=== PATIENT | female | born 1995 | race Caucasian/White ===

== ENCOUNTER 2019-12-25 17:19 | Observation (INO) | payer OTHER, SELFPAY ==
[2019-12-25 17:56] VITALS: BP 136/72; PULSE 102
[2019-12-25 18:07] VITALS: BMI 26.6
[2019-12-25] MEDS: ACETAMINOPHEN 500 MG TABLET 1000 MG PO (18:17)
[2019-12-25 18:28] VITALS: BP 140/71; PULSE 104
[2019-12-25 18:30] VITALS: RESP 20; TEMP 37.6
--- NOTE | 2019-12-25 18:53 | OBADM ---
This patient, Patricia Madden, admitted to the OB room OB Post 113 for observation. Patient/family oriented to hospital policies and general routines including ID bracelet, bed and alarms, visiting hours, pain management, procedures, bathroom and other care routines, personal items, smoking policy, room service/diet, and visiting hours. Patient/Family are encouraged to report perceived risks to care and to ask questions if they do not understand what they are told or what they should do.
--- NOTE | 2019-12-29 11:42 | PM.OBTRLD ---
OB - Triage/Final Diagnosis Visit Information Reason for evaluation: threatened labor
== END 2019-12-25 19:54 | disposition home or self-care (01) ==
PROVIDERS: Admitting Provider Obstetrics & Gynecology; Visit Provider Obstetrics & Gynecology
DX: O47.02 False labor before 37 completed weeks of gestation, second trimester (principal); Z3A.27 27 weeks gestation of pregnancy
CPT/HCPCS: A9270; G0378; G0379

== ENCOUNTER 2020-03-08 16:59 | Outpatient (RCR) | payer OTHER, SELFPAY ==
--- NOTE | ~2020-03-08 | US_ITS ---
EXAMINATION: US OB limited w BPP EXAM DATE: 03/08/2020 18:44 INDICATION: Verbal decelerations. Nonreactive stress test. Third trimester. TECHNIQUE: Pelvic obstetrical transabdominal sonogram was performed by a technologist. There are mu ltiple grayscale and Doppler images available for interpretation. FINDINGS: There is a single fetus identified in vertex presentation with a heart rate of 139 beats pe r minute. The placenta is located in the posterior position. There is no sonographic evidence of ret roplacental hemorrhage identified. The amniotic fluid index is 14.7 centimeters, which is normal. BIOPHYSICAL PROFILE (performed by the technologist) breathing (30 sec sustained breathing in 30 minutes): 2 out of 2 movement (3 gross body movements in 30 minutes): 2 out of 2 tone (one episode of ymbpmcg-lahmhcywe-qswjxka limb movement): 2 out of 2 Amniotic fluid pocket (2 cm): 2 out of 2 Total score: 8 out of 8 IMPRESSION: 1. Single fetus with heart rate of 139 bpm. 2. Normal biophysical profile score of 8 out of 8. 3. Normal UMA 14.7 cm. Reviewed, dictated and finalized at location A.
--- NOTE | 2020-03-08 17:40 | PC.NURSE ---
Called Dr. Arvizu with pt status. Informed of BPs, questionable variable decelerations and decreased movement. Occasional contractions noted. Orders received for ultrasound and labs.
[2020-03-08 18:05] LABS: Basophils Percent Auto 0.2 % (0.2-1.2); Eosinophils Absolute Auto 0.1 K/mm3 (0-0.3); Eosinophils Percent Auto 0.9 % (0-4.4); Hematocrit 33.7 % (37.0-47.0); Hemoglobin 11.1 g/dL (12.0-15.0); Immature Granulocyte Absolute 0.23 K/mm3 (0.00-0.031); Immature Granulocyte Percent A 2.1 % (0-0.5); Lymphocytes Absolute Auto 1.95 K/mm3 (0.9-3.2); Lymphocytes Percent Auto 18.2 % (18.3-44.2); Mean Corpuscular HGB Conc 32.9 g/dl (32-36); Mean Corpuscular Hemoglobin 29.7 pg (26-34); Mean Corpuscular Volume 90.1 fl (80-100); Mean Platelet Volume 12.3 fl (7.4-10.4); Monocytes Absolute Auto 0.8 K/mm3 (0.1-0.6); Monocytes Percent Auto 7.6 % (2.6-8.5); Neutrophils Absolute Auto 7.6 K/mm3 (1.3-6.7); Platelet Count Result 182 k/mm3 (150-375); Red Blood Count 3.74 M/mm3 (4.2-5.4); Red Cell Distribution Width 12.8 % (11.5-14.5); White Blood Count 10.7 K/mm3 (4.5-10.0)
[2020-03-08 18:16] LABS: Alanine Aminotransferase 17 U/L (4-35); Albumin Level 3.5 g/dL (3.5-5.1); Alkaline Phosphatase 135 U/L (38-126); Aspartate Amino Transferase 24 U/L (14-36); Bilirubin,Total 0.2 mg/dL (0.2-1.3); Blood Urea Nitrogen 6 mg/dL (7-17); Calcium 9.6 mg/dL (8.4-10.2); Carbon Dioxide 21 mmol/L (22-30); Chloride 105 mmol/L (98-107); Estimated Glomerular Filt Rate > 60; Glucose 101 mg/dL (65-105); Potassium 3.5 mmol/L (3.4-5.0); Sodium 134 mmol/L (137-145); Uric Acid 3.9 mg/dL (2.5-7.5)
[2020-03-08 18:17] LABS: Creatinine Urine 47.8 mg/dL; Total Protein Urine Random 16 mg/dL
--- NOTE | 2020-03-08 18:54 | PC.NURSE ---
Updated Dr. Arvizu with patient lab results and ultrasound report. BPP 06/18. UMA WNL. Protein/Creatinine ratio 0.33. Patient reports feeling increased movement when placing hands on abdomen. FHT reactive. Occasional contractions noted. Order for discharge received. 24 hour urine collection started prior to discharge. Patient to follow-up with Dr. Koch tomorrow at regular scheduled appointment on 03/09/2020.
[2020-03-08 18:57] VITALS: BP 134/85; PULSE 102
--- NOTE | 2020-03-08 19:00 | PC.NURSE ---
24 Hour urine collection instructions reviewed with patient. 24 hour urine started.
[2020-03-08 19:26] VITALS: BMI 30.2
[2020-03-09 18:47] VITALS: BMI 30.2
== END 2020-03-14 07:52 | disposition home or self-care (01) ==
LOC: ANHOBOP 16:59
PROVIDERS: Obstetrics & Gynecology; Visit Provider Obstetrics & Gynecology
DX: O13.3 Gestational [pregnancy-induced] hypertension without significant proteinuria, third trimester (principal); O36.8130 Decreased fetal movements, third trimester, not applicable or unspecified; Z3A.37 37 weeks gestation of pregnancy
CPT/HCPCS: 36415; 59025; 76815; 76819; 80053; 82570; 84156; 84550; 85025

== ENCOUNTER 2020-03-09 18:42 | Outpatient (RCR) | payer OTHER, SELFPAY ==
[2020-03-09 19:01] VITALS: BMI 30.2
[2020-03-09 22:07] LABS: Collection Time Urine 24 HOURS
[2020-03-09 22:11] LABS: Patient Weight 205 Lbs; Total Volume 24 Hour Urine 1600 ml
[2020-03-09 22:15] LABS: Creatinine Clearance Urine 226.4 ml/min (75-125); Creatinine Urine 73.5 mg/dL; Total Protein Urine 24 Hr 256 MG/DAY (28-141); Total Protein Urine Random 16 mg/dL
== END 2020-03-14 07:51 | disposition home or self-care (01) ==
LOC: ANHOBOP 18:42
PROVIDERS: Visit Provider Obstetrics & Gynecology
DX: O13.3 Gestational [pregnancy-induced] hypertension without significant proteinuria, third trimester (principal); Z3A.38 38 weeks gestation of pregnancy
CPT/HCPCS: 81050; 82575; 84156

== ENCOUNTER 2020-03-13 04:11 | Inpatient (IN) | payer BC, OTHER, SELFPAY ==
[2020-03-13] VITALS (121 sets, daily range): BP systolic 112–153; BP diastolic 58–115; PULSE 51–284; RESP 17–18; TEMP 36.7–37.4; O2SAT 79–100; BMI 30.9
[2020-03-13] MEDS: AMPICILLIN 2 GM/NS 100 ML 2 GM/100 ML BAG IVPB (05:11)
[2020-03-13] MEDS: LACTATED RINGERS 1,000 ML 125 ML IV CONT ×3 (05:11→08:51)
[2020-03-13 05:17] LABS: Basophils Percent Auto 0.2 % (0.2-1.2); Eosinophils Absolute Auto 0.1 K/mm3 (0-0.3); Eosinophils Percent Auto 1.4 % (0-4.4); Immature Granulocyte Absolute 0.21 K/mm3 (0.00-0.031); Immature Granulocyte Percent A 2.2 % (0-0.5); Lymphocytes Absolute Auto 2.38 K/mm3 (0.9-3.2); Lymphocytes Percent Auto 25.4 % (18.3-44.2); Mean Corpuscular HGB Conc 33.3 g/dl (32-36); Mean Corpuscular Hemoglobin 30.1 pg (26-34); Mean Corpuscular Volume 90.4 fl (80-100); Mean Platelet Volume 12.4 fl (7.4-10.4); Monocytes Absolute Auto 0.8 K/mm3 (0.1-0.6); Monocytes Percent Auto 8.8 % (2.6-8.5); Neutrophils Absolute Auto 5.8 K/mm3 (1.3-6.7); Platelet Count Result 176 k/mm3 (150-375); Red Blood Count 3.65 M/mm3 (4.2-5.4); White Blood Count 9.4 K/mm3 (4.5-10.0)
--- NOTE | 2020-03-13 05:19 | LDADM ---
This patient, Patricia Madden, was admitted to Labor/Delivery/Recovery 107 on 03/13/20 at 04:11. Plans for labor, pain management and were discussed with patient. Patient/family oriented to hospital policies and general routines including ID bracelet, bed and alarms, visiting hours, pain management, procedures, bathroom and other care routines, personal items, smoking policy, room service/diet and guest tray routines, infant security routines, and visiting hours. Patient/Family are encouraged to report perceived risks to care and to ask questions if they do not understand what they are told or what they should do. See OBIX for further documentation.
[2020-03-13 05:52] LABS: Alanine Aminotransferase 15 U/L (4-35); Albumin Level 3.4 g/dL (3.5-5.1); Alkaline Phosphatase 135 U/L (38-126); Aspartate Amino Transferase 24 U/L (14-36); Bilirubin,Total 0.2 mg/dL (0.2-1.3); Blood Urea Nitrogen 8 mg/dL (7-17); Calcium 9.2 mg/dL (8.4-10.2); Carbon Dioxide 18 mmol/L (22-30); Chloride 109 mmol/L (98-107); Estimated CRCL calculation 271 ml/min; Estimated Glomerular Filt Rate > 60; Glucose 86 mg/dL (65-105); Potassium 3.5 mmol/L (3.4-5.0); Sodium 134 mmol/L (137-145); Uric Acid 4.3 mg/dL (2.5-7.5)
--- NOTE | 2020-03-13 05:55 | WPDANESEPP ---
Anes - Eval Pre Procedure Procedure: labor epidural Date/Time: 03/13/20 05:55 Surgeon: sea Pre Op Diagnosis: Leaking/Vag bleeding Patient Data Age: 24 Gender: F Height: 1.75 m Weight: 95 kg Last Vital Signs Temp 37.4 C 03/13/20 05:10 Pulse 90 03/13/20 05:46 BP 150/94 H 03/13/20 05:46 Allergies Allergy/AdvReac Type Severity Reaction Status Date / Time No Known Allergies Allergy Verified 11/28/19 21:45 Home Medications Medication Instructions Recorded Confirmed Type Gummies 2 tablet PO DAILY 12/25/19 12/25/19 History sertraline 50 mg PO HS 12/25/19 12/25/19 History Laboratory Tests 03/13/20 03/13/20 03/13/20 04:56 04:56 05:33 WBC 9.4 K/mm3 K/mm3 (4.5-10.0) RBC 3.65 M/mm3 L M/mm3 (4.2-5.4) Hgb 11.0 g/dL L g/dL (12.0-15.0) Hct 33.0 % L % (37.0-47.0) MCV 90.4 fl fl (80-100) MCH 30.1 pg pg (26-34) MCHC 33.3 g/dl g/dl (32-36) RDW 13.0 % % (11.5-14.5) Plt Count 176 k/mm3 k/mm3 (150-375) MPV 12.4 fl H fl (7.4-10.4) Immature Gran % (Auto) 2.2 % H % (0-0.5) Neut % (Auto) 62.0 % % (45.5-73.1) Lymph % (Auto) 25.4 % % (18.3-44.2) [place] % (Auto) 8.8 % H % (2.6-8.5) Eos % (Auto) 1.4 % % (0-4.4) Baso % (Auto) 0.2 % % (0.2-1.2) Lymph # (Auto) 2.38 K/mm3 K/mm3 (0.9-3.2) [place] # (Auto) 0.8 K/mm3 H K/mm3 (0.1-0.6) Eos # (Auto) 0.1 K/mm3 K/mm3 (0-0.3) Baso # (Auto) 0.0 K/mm3 K/mm3 (0.0-0.1) Abs Immat Gran (auto) 0.21 K/mm3 H K/mm3 (0.00-0.031) Absolute Neuts (auto) 5.8 K/mm3 K/mm3 (1.3-6.7) Absolute Nucleated RBC 0.0 K/mm3 K/mm3 (0.0-0.012) Nucleated RBC % 0.0 % % (0.0-0.2) Sodium 134 mmol/L L mmol/L (137-145) Potassium 3.5 mmol/L mmol/L (3.4-5.0) Chloride 109 mmol/L H mmol/L (98-107) Carbon Dioxide 18 mmol/L L mmol/L (22-30) BUN 8 mg/dL mg/dL (7-17) Creatinine 0.30 mg/dL L mg/dL (0.7-1.0) Estim Creat Clear Calc 271 ml/min ml/min Estimated GFR > 60 (59 - ) Glucose 86 mg/dL mg/dL (65-105) Uric Acid 4.3 mg/dL mg/dL (2.5-7.5) Calcium 9.2 mg/dL mg/dL (8.4-10.2) Total Bilirubin 0.2 mg/dL mg/dL (0.2-1.3) AST 24 U/L U/L (14-36) ALT 15 U/L U/L (4-35) Alkaline Phosphatase 135 U/L H U/L (38-126) Total Protein 6.0 g/dL L g/dL (6.3-8.2) Albumin 3.4 g/dL L g/dL (3.5-5.1) RPR Pending Patient hx anesthesia problems: none Family hx anesthesia problems: none [facility] Past Medical History Medical History (Updated 11/29/19 @ 00:00 by Sheldon Gregory) Anxiety Surgical History Surgical History (Updated 11/28/19 @ 21:47 by Laura Valle) History of appendectomy Family History Family History (Updated 02/27/20 @ 13:33 by Sam Jansen RN) Mother Hypertension Rheumatoid arthritis Social History Social History (Updated 11/28/19 @ 21:47 by Laura Valle) Smoking status: Never smoker Substance use: never Gender identity (if verbalized by the patient): Female Spiritual care concerns: No Exam Day of Procedure 03/13/20 05:55
[2020-03-13] MEDS: OXYTOCIN 30 UNITS/NS 500 ML 30 UNITS/500 ML BAG 6 UNITS IV CONT (06:32)
[2020-03-13] MEDS: AMPICILLIN 1 GM/NS 50 ML 1 GM/50 ML BAG IVPB (08:51)
--- NOTE | 2020-03-13 09:30 | WPDOBADMIT ---
Obstetrics - Admit Note Admission Note: record reviewed. No pertinent additions to the history and/or any subsequent changes in the physical findings that are not consistent with the expected course of the were found. Additions to the history and/or subsequent changes in the physical findings follow. Here with prolonged ROM. Patient did not come in when SROM until early this am. Pitocin and antibiotics started immediately. Now 6/80/-1. AROM forebag with clear fluid.FHTs reactive
--- NOTE | 2020-03-13 12:07 | PM.OBPRVD ---
OB - Delivery Note Procedure events: Induced HTN and Prolonged Rupture of Membrane (03/12/20 at 0700) Intrapartal events: None Induction method: per pitocin protocol Delivery monitor: external FHT and external uterine Route of delivery: Laceration description: Perineal - 1st Degree Delivery repair: vicryl (3-0 ) Specimen: Yes (placenta) Estimated blood loss (mL): 100 Anesthesia type: Epidural Disposition: floor Baby Date of : 03/13/20 Weeks of gestation at delivery: 38 gender: Male Weight (pounds): 7 Weight (ounces): 3 presentation: vertex Placenta delivery description: Spontaneous cord vessel description: Around Body x1 score one minute: 9 score five minutes: 9
--- NOTE | 2020-03-13 12:08 | PM.OBDSVD ---
DS: Diagnosis Discharge Diagnosis (1) 38 weeks gestation of : Code(s): Z3A.38 - 38 weeks gestation of Status: Acute (2) induced hypertension: Code(s): O13.9 - Gestational [-induced] hypertension without significant proteinuria, unspecified trimester Status: Acute (3) (normal spontaneous vaginal delivery): Code(s): O80 - Encounter for full-term uncomplicated delivery Status: Acute OB - DS: Summary OB Procedures : NST and Ultrasound OB Procedures Intrapartum: Spontaneous Vag Delivery OB Procedures: : None Peripartum Data Delivery Method: Natural Vaginal Laceration description: Perineal - 1st Degree complications: none Status at Discharge Functional status at discharge: independent ambulation Overall status at discharge: patient is progressing back to baseline Time Spent with Patient Time attestation: Total time spent providing and/or coordinating discharge services: DS: Data Data Completed and Pending Labs on day of discharge: Labs from last 24 hours 03/13/20 03/13/20 03/13/20 05:33 04:56 04:56 WBC RBC Hgb Hct MCV MCH MCHC RDW Plt Count MPV Immature Gran % (Auto) Neut % (Auto) Lymph % (Auto) [place] % (Auto) Eos % (Auto) Baso % (Auto) Lymph # (Auto) [place] # (Auto) Eos # (Auto) Baso # (Auto) Abs Immat Gran (auto) Absolute Neuts (auto) Absolute Nucleated RBC Nucleated RBC % Sodium 134 L Potassium 3.5 Chloride 109 H Carbon Dioxide 18 L BUN 8 Creatinine 0.30 L Estim Creat Clear Calc 271 Estimated GFR > 60 Glucose 86 Uric Acid 4.3 Calcium 9.2 Total Bilirubin 0.2 AST 24 ALT 15 Alkaline Phosphatase 135 H Total Protein 6.0 L Albumin 3.4 L RPR Pending Blood Type O Positive Antibody Screen Negative 03/13/20 04:56 WBC 9.4 RBC 3.65 L Hgb 11.0 L Hct 33.0 L MCV 90.4 MCH 30.1 MCHC 33.3 RDW 13.0 Plt Count 176 MPV 12.4 H Immature Gran % (Auto) 2.2 H Neut % (Auto) 62.0 Lymph % (Auto) 25.4 [place] % (Auto) 8.8 H Eos % (Auto) 1.4 Baso % (Auto) 0.2 Lymph # (Auto) 2.38 [place] # (Auto) 0.8 H Eos # (Auto) 0.1 Baso # (Auto) 0.0 Abs Immat Gran (auto) 0.21 H Absolute Neuts (auto) 5.8 Absolute Nucleated RBC 0.0 Nucleated RBC % 0.0 Sodium Potassium Chloride Carbon Dioxide BUN Creatinine Estim Creat Clear Calc Estimated GFR Glucose Uric Acid Calcium Total Bilirubin AST ALT Alkaline Phosphatase Total Protein Albumin RPR Blood Type Antibody Screen Discharge Plan Discharge Attending physician on discharge: Lachelle Adame Discharging Clinician: Lachelle Adame Anticipated Discharge Date/Time: 03/15/20 07:09 Patient Disposition: Home, Self-Care Activity: pelvic rest Diet: regular Discharge Instructions: Education: Mom and Baby Guide Given to: Mother Follow-Up: Call your delivering provider's office for an appointment to be seen in: 1 Week for blood pressure check and for a 6 week visit Mom and baby should come to the [facility] for the follow-up appointment. Appointment Date/Time: March 16, 2020 at 8:00 am What to expect at your follow-up visit: Blood Pressure Check Physical Assessment Call [phone] if you are unable to keep your appointment time. BREAST CARE: 1. Wear a snug supportive bra. 2. For engorgement discomfort: Bottle Feeding: A. May apply ice packs 3 PERINEAL CARE: 1. Until bleeding stops, use your adams bottle after urinating 2. Change your pad frequently throughout the day 3. You may take sitz baths several times a day (fill your bathtub with warm water and soak for 20 minutes.) Do NOT bathe in the water 4. No tub baths until seen by your physician - You may shower ACTIVITY: 1. Rest as m
[2020-03-13] MEDS: OXYTOCIN 30 UNITS/NS 500 ML 30 UNITS/500 ML BAG 125 UNITS IV CONT (12:31)
--- NOTE | 2020-03-13 14:45 | OBPPTRN ---
Patient transferred to post room # 291 via wheelchair. Support person present. Oriented to unit, room, information board, rooming in, admission packet and security measures. Patient verbalizes understanding.
[2020-03-13] MEDS: WITCH HAZEL 40 PADS 1 PAD TOPICAL (14:56)
[2020-03-13] MEDS: BENZOCAINE 20% AER SPR (*SP) 56 GM CAN 1 SPRAY TOPICAL (14:56)
[2020-03-13] MEDS: IBUPROFEN 600 MG TABLET PO (15:12)
[2020-03-13] MEDS: ACETAMINOPHEN 325 MG TABLET 650 MG PO ×2 (16:54→21:58)
--- NOTE | 2020-03-13 20:11 | PC.NURSE ---
Pt states that her lower back was hurting so this RN took pt a heating pad.
[2020-03-13] MEDS: SERTRALINE HCL 50 MG TABLET PO (22:23)
[2020-03-14 05:33] LABS: Hematocrit 30.2 % (37.0-47.0)
[2020-03-14 07:06] LABS: Rapid Plasma Reagin Non-Reactive (NonReactive)
[2020-03-14] MEDS: IBUPROFEN 600 MG TABLET PO (07:14)
[2020-03-14] MEDS: MULTIVIT/MIN/PREN/FOL AC/IRON TABLET 1 TAB PO (07:14)
[2020-03-14] MEDS: DOCUSATE SODIUM 100 MG CAPSULE PO ×2 (07:14→16:20)
[2020-03-14 08:58] VITALS: BP 141/85; PULSE 84; RESP 14; TEMP 37.1; O2SAT 99
[2020-03-14] MEDS: ACETAMINOPHEN 325 MG TABLET 650 MG PO ×3 (09:06→23:04)
--- NOTE | 2020-03-14 10:02 | WPDANLDPN2 ---
Anes-Prog Note L&D Date/Time: 03/14/20 10:02 Comfortable throughout: labor and delivery Neuraxial method: epidural Epidural/Spinal procedure site: clean & non-tender Neuro status: Neuro function grossly intact. Cardiovascular status: normal Respiratory status: normal Airway patency: baseline Mental status: baseline Post-Op hydration status: normal Vital Signs: Last Vital Signs Temp 37.1 C 03/14/20 08:58 Pulse 84 03/14/20 08:58 Resp 14 03/14/20 08:58 BP 141/85 H 03/14/20 08:58 Pulse Ox 99 03/14/20 08:58 I/O: Intake & Output 03/13/20 03/14/20 03/14/20 23:59 07:59 15:59 Intake Total 240 Balance 240 Post-procedural complaints: none Patient feedback: Patient satisfied with anesthetic care.
--- NOTE | 2020-03-14 13:24 | PM.OBPNVD ---
OB - PN: Subj Subjective Date/time seen: 03/14/20 13:24 Patient comments: no complaints, pain well controlled and tolerating diet [place] baby status: doing well Narrative: No PIH sx OB - PN: Obj Data Labs CBC & Chem 7: 03/14/20 05:25 03/13/20 05:33 Labs: Laboratory Results - last 24 hr 03/13/20 03/14/20 04:56 05:25 Hgb 10.0 L Hct 30.2 L RPR Non-reactive OB - PN A/P Assessment and Plan (1) induced hypertension: Code(s): O13.9 - Gestational [-induced] hypertension without significant proteinuria, unspecified trimester Status: Acute Assessment and Plan: BP remain elevated. No sx. Obs. Plan day: 1 Plan: routine care Time Spent With Patient Time: Total time spent is greater than 50% in coordination of care (as documented) at patient's floor/unit and/or counseling patient: Exam : Bimanual exam- vagina & uterus: other (Uterus firm, nt @U)
[2020-03-14 19:30] VITALS: BP 128/85; PULSE 90; RESP 16; TEMP 37.2; O2SAT 100
[2020-03-14] MEDS: SERTRALINE HCL 50 MG TABLET PO (23:04)
[2020-03-15] MEDS: BENZOCAINE 20% AER SPR (*SP) 56 GM CAN 1 SPRAY TOPICAL (07:24)
[2020-03-15] MEDS: DOCUSATE SODIUM 100 MG CAPSULE PO (07:24)
[2020-03-15] MEDS: ACETAMINOPHEN 325 MG TABLET 650 MG PO (07:24)
[2020-03-15] MEDS: WITCH HAZEL 40 PADS 1 PAD TOPICAL (07:24)
[2020-03-15] MEDS: MULTIVIT/MIN/PREN/FOL AC/IRON TABLET 1 TAB PO (07:24)
--- NOTE | 2020-03-15 07:54 | P.PNOB_ITS ---
OB - PN: Subj Subjective Date/time seen: 03/15/20 07:54 Patient comments: no complaints and pain well controlled baby status: doing well Narrative: No PIH sx OB - PN: Obj Data Labs CBC & Chem 7: 03/14/20 05:25 03/13/20 05:33 OB - PN A/P Assessment and Plan (1) induced hypertension: Code(s): O13.9 - Gestational [-induced] hypertension without significant prot einuria, unspecified trimester Status: Acute Assessment and Plan: BP check at home. Call for >160/100 Plan day: 2 Plan: routine care and discharge home Comments: f/u 1 wk Time Spent With Patient Time: Total time spent is greater than 50% in coordination of care (as documented) at patient's floor/unit and/or counseling patient: Exam : Bimanual exam- vagina & uterus: other (Uterus firm, nt @U)
[2020-03-15 08:22] VITALS: BP 116/65; PULSE 71; RESP 14; TEMP 36.6
[2020-03-16 08:56] VITALS: BP 139/77; PULSE 92; RESP 20; TEMP 37.1
== END 2020-03-15 11:08 | disposition home or self-care (01) | DRG 560 ==
LOC: ANHLDR 12:10 → ANHOB2 03-14 11:55 → ANHLDR 03-16 12:57 → ANHOB2 03-16 12:57
PROVIDERS: Admitting Provider Obstetrics & Gynecology Gynecology; Visit Provider Obstetrics & Gynecology Gynecology
DX: O42.92 Full-term premature rupture of membranes, unspecified as to length of time between rupture and onset of labor (principal); Z37.0 Single live birth; Z3A.38 38 weeks gestation of pregnancy; O13.4 Gestational [pregnancy-induced] hypertension without significant proteinuria, complicating childbirth; O99.824 Streptococcus B carrier state complicating childbirth; O69.82X0 Labor and delivery complicated by other cord entanglement, without compression, not applicable or unspecified; O70.0 First degree perineal laceration during delivery; O99.344 Other mental disorders complicating childbirth; F41.8 Other specified anxiety disorders
CPT/HCPCS: 36415; 80053; 84550; 85014; 85018; 85025; 86592; 86850; 86900; 86901; 88307; A9270; J0290; J2590; J2795; J7120

== ENCOUNTER 2020-03-16 08:39 | Outpatient (CLI) | payer OTHER, SELFPAY ==
[2020-03-16] MEDS: medroxyPROGESTERone ACETATE IM 150 MG/ML SYR IM (09:13)
== END 2020-03-16 08:40 | disposition home or self-care (01) ==
PROVIDERS: Visit Provider Obstetrics & Gynecology Gynecology
DX: Z30.42 Encounter for surveillance of injectable contraceptive (principal)
CPT/HCPCS: 96372; J1050

== ENCOUNTER 2021-07-21 14:25 | Outpatient (CLI) | payer OTHER, SELFPAY ==
--- NOTE | ~2021-07-21 | US_ITS ---
EXAMINATION: US OB /maternal detail DATE: 07/21/2021 15:20 INDICATION: survey TECHNIQUE: Multiple obstetric sonographic images performed. FINDINGS: No prior studies for comparison. There is a single living fetus in variable presentation. The placenta is fundal/posterior without pl acenta previa. Placental margin to the cervix is 7.9 cm. Amniotic fluid volume is subjectively normal . cardiac activity and movement is noted with a heart rate of 148 beats per minute. There are bilateral choroid plexus cysts. The spine and ventricular outflow tracts are not well visua lized. The following anatomy was identified as normal: 3 vessel cord cord insertion kidneys urinary bladder stomach spine diaphragm cisterna magna cerebellum The following biometric data were obtained: BPD: 46mm corresponds to gestational age 19 weeks 6 days. Head circumference: 166 mm corresponds to gestational age 19 weeks 2 days. Abdominal circumference: 141 mm corresponds to gestational age 19 weeks 3 days. Femur length: 29 mm corresponds to gestational age 19 weeks 0 days. Head circumference to abdominal circumference ratio: 1.17 (normal range for expected gestational age is 1.08-1.26). Estimated weight: 282 grams +/- 42 grams using Hadlock method. IMPRESSION: 1: Single living intrauterine with an estimated gestational age of 19weeks 3days by current ultrasound measurements, with an EDC of 12/12/2021 in variable presentation. 2. survey limited for evaluation of the spine and ventricular outflow tracts. Bilateral choroi d plexus cyst are present. Remainder of the survey is within normal limits. Reviewed, dictated and finalized at location A. IMPRESSION: 1: Single living intrauterine with an estimated gestational age of 19 weeks 3days by current ultrasound measurements, with an EDC of 12/12/2021 in va riable presentation. 2. survey limited for evaluation of the spine and ventricular outflow tr acts. Bilateral choroid plexus cyst are present. Remainder of the survey is within normal limits.
== END 2021-07-21 14:26 | disposition home or self-care (01) ==
LOC: ANHIMG 14:32
PROVIDERS: Visit Provider Obstetrics & Gynecology Gynecology
DX: Z36.89 Encounter for other specified antenatal screening (principal); Z3A.19 19 weeks gestation of pregnancy
CPT/HCPCS: 76805

== ENCOUNTER 2021-08-30 16:48 | Emergency (ER) | payer OTHER, SELFPAY ==
[2021-08-30 17:09] VITALS: BP 117/62; PULSE 107; RESP 18; TEMP 36.3; O2SAT 99
--- NOTE | 2021-08-30 17:13 | ECG_ITS ---
Measurements Intervals [place] Rate: 92 P: 44 [place]: 127 QRS: 11 QRSD: 98 T: 29 QT: 361 QTc: 448 Interpretive Statements SINUS RHYTHM BASELINE ARTIFACT- I, II, III, AVR, AVL, AVF NORMAL ECG Electronically Signed On 08-30-2021 19:57:04 CDT by Thuan Johnson D.O.
[2021-08-30 17:37] LABS: Basophils Percent Auto 0.3 % (0.2-1.2); Eosinophils Absolute Auto 0.2 K/mm3 (0-0.3); Eosinophils Percent Auto 1.6 % (0-4.4); Hematocrit 36.6 % (37.0-47.0); Hemoglobin 12.4 g/dL (12.0-15.0); Immature Granulocyte Absolute 0.24 K/mm3 (0.00-0.031); Immature Granulocyte Percent A 2.6 % (0-0.5); Lymphocytes Absolute Auto 1.73 K/mm3 (0.9-3.2); Lymphocytes Percent Auto 18.8 % (18.3-44.2); Mean Corpuscular HGB Conc 33.9 g/dl (32-36); Mean Corpuscular Volume 94.6 fl (80-100); Mean Platelet Volume 10.9 fl (7.4-10.4); Monocytes Absolute Auto 0.9 K/mm3 (0.1-0.6); Monocytes Percent Auto 9.3 % (2.6-8.5); Neutrophils Absolute Auto 6.2 K/mm3 (1.3-6.7); Neutrophils Percent Auto 67.4 % (45.5-73.1); Platelet Count Result 187 k/mm3 (150-375); Red Blood Count 3.87 M/mm3 (4.2-5.4); White Blood Count 9.2 K/mm3 (4.5-10.0)
[2021-08-30 17:46] LABS: Anion Gap 10 mmol/L (8-16); Blood Urea Nitrogen 5 mg/dL (7-17); Carbon Dioxide 20 mmol/L (22-30); Chloride 107 mmol/L (98-107); Estimated CRCL calculation 249 ml/min; Estimated Glomerular Filt Rate > 60; Glucose 86 mg/dL (65-110); Potassium 3.7 mmol/L (3.4-5.0); Prothrombin Time 13.2 Seconds (11.1-14.7); Sodium 137 mmol/L (137-145)
[2021-08-30 17:47] LABS: Partial Thromboplastin Time 29.2 SECONDS (22.3-36.8)
[2021-08-30 17:58] LABS: Troponin I < 0.012 ng/mL (0.000-0.034)
--- NOTE | 2021-08-30 18:38 | ED.URI ---
HPI - URI/Sore Throat General Chief Complaint: Upper Respiratory Infection Stated Complaint: sent from Urgent care for CP Time Seen by Provider: 08/30/21 18:25 Source: patient Mode of arrival: ambulatory Limitations: no limitations History of Present Illness HPI Narrative: 25-year-old 2 para 1 about 28 weeks of gestation here with complaints of cough and left-sided chest pain every time she coughs. She denies shortness of breath, nausea or vomiting or fever. She states her child has upper respiratory tract infection. Patient states that she gets recurrent bronchitis. MD elicited complaint: cough and rhinorrhea Onset (ago): day(s) (3) Consistency: intermittent Severity: mild Exacerbating factors: other (Coughing) Context: sick contacts Associated symptoms: denies other symptoms Related Data Home Medications Medication Instructions Recorded Confirmed Gummies 2 tablet PO DAILY 12/25/19 03/13/20 sertraline 50 mg PO HS 12/25/19 03/13/20 Allergies Allergy/AdvReac Type Severity Reaction Status Date / Time No Known Allergies Allergy Verified 11/28/19 21:45 Review of Systems Review of Systems: All systems reviewed & are unremarkable except as noted in HPI and below Constitutional: Constitutional: Reports no additional constitutional complaints Eyes: Eyes: Reports no additional eye complaints ENT: Reports system reviewed and no additional complaints, except as documented Cardiovascular: Cardiovascular: Reports as per HPI Respiratory: Respiratory: Reports as per HPI Gastrointestinal: Gastrointestinal: Reports no additional gastrointestinal complaints Musculoskeletal: Musculoskeletal: Reports no additional musculoskeletal complaints Integumentary/Breasts: Skin/Breast: Reports system reviewed and no additional complaints, except as docu Neurologic: Reports system reviewed and no additional complaints, except as documented PMFSH Past Medical History Medical History Anxiety Surgical History Surgical History (Updated 11/28/19 @ 21:47 by Laura Valle) History of appendectomy Family History Family History Mother Hypertension Rheumatoid arthritis Social History Social History Smoking status: Never smoker Substance use: never Gender identity (if verbalized by the patient): Female Spiritual care concerns: No Exam Narrative: GENERAL: Well-appearing, well-nourished, and in no acute distress. HEAD: Normocephalic, atraumatic. EYES: PERRLA and EOMI.. NECK: Supple. CHEST: Clear to auscultation. No respiratory distress. HEART: Regular rate and rhythm. No murmur heard. Normal peripheral pulses. ABDOMEN: Gravid abdomen EXTREMITIES: Normal range of motion. No edema. SKIN: Warm, dry, no rash. NEURO: No focal deficits. Alert and oriented x3. PSYCH: Normal mood and affect. Course Course Emergency Course: Inform patient about her lab work, patient declined a chest x-ray. Her symptoms are consistent with bronchitis we will give her Zithromax. Advised her to take antibiotic as prescribed, follow-up with her primary doctor , also recommended Tylenol for pain as needed Vital Signs Vital signs: Vital Signs Temperature 36.3 C L 08/30/21 17:09 Pulse Rate 107 H 08/30/21 17:09 Respiratory Rate 18 08/30/21 17:09 Blood Pressure 117/62 08/30/21 17:09 Pulse Oximetry 99 08/30/21 17:09 Temperature 36.3 C L 08/30/21 17:09 Pulse Rate 107 H 08/30/21 17:09 Respiratory Rate 18 08/30/21 17:09 Blood Pressure 117/62 08/30/21 17:09 Pulse Oximetry 99 08/30/21 17:09 MDM - URI/Sore Throat Lab Data Result diagrams: 08/30/21 17:24 08/30/21 17:24 Labs: Lab Results 08/30/21 08/30/21 08/30/21 Range/Units 17:24 17:24 17:24 WBC 9.2 (4.5-10.0) K/mm3 RBC 3.87 L (4.2-5.
[2021-08-30 19:32] VITALS: BP 137/76; PULSE 95; RESP 15; O2SAT 98
== END 2021-08-30 19:39 | disposition home or self-care (01) ==
LOC: ANHED 19:05
PROVIDERS: General Practice; Emergency Provider Family Medicine
DX: O99.513 Diseases of the respiratory system complicating pregnancy, third trimester (principal); J40 Bronchitis, not specified as acute or chronic; Z3A.28 28 weeks gestation of pregnancy
CPT/HCPCS: 36415; 80048; 84484; 85025; 85610; 85730; 93005; 99284

== ENCOUNTER 2021-09-19 10:07 | Outpatient (CLI) | payer OTHER, SELFPAY ==
[2021-09-19 10:56] LABS: Basophils Percent Auto 0.2 % (0.2-1.2); Eosinophils Absolute Auto 0.1 K/mm3 (0-0.3); Eosinophils Percent Auto 0.5 % (0-4.4); Hematocrit 33.9 % (37.0-47.0); Hemoglobin 11.5 g/dL (12.0-15.0); Immature Granulocyte Absolute 0.11 K/mm3 (0.00-0.031); Immature Granulocyte Percent A 1.2 % (0-0.5); Lymphocytes Absolute Auto 2.25 K/mm3 (0.9-3.2); Lymphocytes Percent Auto 24.4 % (18.3-44.2); Mean Corpuscular HGB Conc 33.9 g/dl (32-36); Mean Corpuscular Hemoglobin 32.1 pg (26-34); Mean Corpuscular Volume 94.7 fl (80-100); Mean Platelet Volume 10.6 fl (7.4-10.4); Monocytes Absolute Auto 0.6 K/mm3 (0.1-0.6); Neutrophils Absolute Auto 6.3 K/mm3 (1.3-6.7); Neutrophils Percent Auto 67.7 % (45.5-73.1); Platelet Count Result 204 k/mm3 (150-375); Red Blood Count 3.58 M/mm3 (4.2-5.4); Red Cell Distribution Width 12.7 % (11.5-14.5); White Blood Count 9.2 K/mm3 (4.5-10.0)
[2021-09-19 11:00] VITALS: BP 120/65; PULSE 92
[2021-09-19 11:00] LABS: Add Urine Microscopic? YES; Appearance Urine Cloudy (Clear); Bilirubin Urine Negative (Negative); Blood Urine Negative (Negative); Color Urine Amber (Yellow); Glucose Urine UA 1+ mg/dL (Negative); Ketones Urine Negative (Negative); Leukocyte Esterase Ur 3+ LEU/UL (NEGATIVE); Mucus Urine Heavy /lpf; Nitrate Urine Negative (Negative); Protein Urine 1+ mg/dL (Negative); Specific Grav Ur 1.024 (1.001-1.035); Squamous Epithelial Cell Urine Many /hpf (Few); WBC Urine >75 /hpf (0-3)
[2021-09-19 11:04] LABS: Creatinine Urine 169.9 mg/dL; Total Protein Urine Random 11 mg/dL; Ur Ttl Prot Creatinine Ratio 0.06 mg/mg (0-0.20)
[2021-09-19 11:06] LABS: Alanine Aminotransferase 14 U/L (4-35); Albumin Level 3.6 g/dL (3.5-5.1); Alkaline Phosphatase 80 U/L (38-126); Anion Gap 3 mmol/L (8-16); Aspartate Amino Transferase 19 U/L (14-36); Bilirubin,Total 0.2 mg/dL (0.2-1.3); Blood Urea Nitrogen 6 mg/dL (7-17); Calcium 8.5 mg/dL (8.4-10.2); Carbon Dioxide 24 mmol/L (22-30); Chloride 109 mmol/L (98-107); Estimated Glomerular Filt Rate > 60; Glucose 92 mg/dL (65-110); Potassium 3.5 mmol/L (3.4-5.0); Sodium 136 mmol/L (137-145); Uric Acid 3.3 mg/dL (2.5-7.5)
[2021-09-19 11:15] VITALS: BP 120/70; PULSE 92
== END 2021-09-19 11:45 | disposition home or self-care (01) ==
LOC: ANHOBOP 10:23 → ANHOBPP 09-25 07:24
PROVIDERS: Visit Provider Obstetrics & Gynecology Gynecology
DX: O13.9 Gestational [pregnancy-induced] hypertension without significant proteinuria, unspecified trimester (principal)
CPT/HCPCS: 36415; 59025; 80053; 81001; 82570; 84156; 84550; 85025; 87086; 99199

== ENCOUNTER 2021-09-20 14:00 | Outpatient (CLI) | payer OTHER, SELFPAY ==
[2021-09-20 14:33] VITALS: BMI 26.6
[2021-09-20 16:10] LABS: Collection Time Urine 24 HOURS
[2021-09-20 16:19] LABS: Creatinine Urine 95.6 mg/dL; Patient Weight 175 Lbs; Total Protein Urine Random 12 mg/dL
[2021-09-20 17:07] LABS: Creatinine Clearance Urine 258.6 ml/min (75-125); Total Protein Urine 24 Hr 156 mg/24hr (28-141); Total Volume 24 Hour Urine 1300 ml
== END 2021-09-20 14:01 | disposition home or self-care (01) ==
LOC: ANHOBOP 14:00
PROVIDERS: Visit Provider Obstetrics & Gynecology Gynecology
DX: O13.9 Gestational [pregnancy-induced] hypertension without significant proteinuria, unspecified trimester (principal)
CPT/HCPCS: 81050; 82575; 84156

== ENCOUNTER 2021-10-25 10:16 | Observation (INO) | payer OTHER, SELFPAY ==
[2021-10-25 10:34] VITALS: BP 137/94; PULSE 92
[2021-10-25 10:46] VITALS: BP 125/78; PULSE 97
[2021-10-25 11:01] VITALS: BP 131/82; PULSE 100
[2021-10-25 11:16] VITALS: BP 128/73; PULSE 96
[2021-10-25 11:31] VITALS: BP 128/74; PULSE 97
[2021-10-25] MEDS: LACTATED RINGERS 1,000 ML 999 ML IV CONT ×2 (11:50→12:26)
[2021-10-25 11:52] VITALS: BMI 29.8
--- NOTE | 2021-10-25 11:52 | OBADM ---
This patient, Patricia Madden, admitted to the OB room OB Post 116 for observation. Patient/family oriented to hospital policies and general routines including ID bracelet, bed and alarms, visiting hours, pain management, procedures, bathroom and other care routines, personal items, smoking policy, room service/diet, and visiting hours. Patient/Family are encouraged to report perceived risks to care and to ask questions if they do not understand what they are told or what they should do.
[2021-10-25 12:13] LABS: Alanine Aminotransferase 18 U/L (4-35); Albumin Level 3.8 g/dL (3.5-5.1); Alkaline Phosphatase 104 U/L (38-126); Anion Gap 8 mmol/L (8-16); Aspartate Amino Transferase 30 U/L (14-36); Bilirubin,Total 0.5 mg/dL (0.2-1.3); Blood Urea Nitrogen 6 mg/dL (7-17); Calcium 8.7 mg/dL (8.4-10.2); Carbon Dioxide 18 mmol/L (22-30); Chloride 106 mmol/L (98-107); Estimated CRCL calculation 198 ml/min; Estimated Glomerular Filt Rate > 60; Glucose 73 mg/dL (65-110); Sodium 132 mmol/L (137-145)
--- NOTE | 2021-10-25 13:27 | PC.NURSE ---
1125- called,informed that pt came for diarrhea that has been since last night. Pt has not been able to void at all today. Order for IVF's received and cmp
--- NOTE | 2021-11-06 08:45 | PM.OBTRLD ---
OB - Triage/Final Diagnosis Visit Information Reason for evaluation: other (Nausea, vomiting, diarrhea) Comments/Additional reasons for admission: I have assessed the risk for this patient, Patricia Gypsy Madden, and determined that she would benefit from observation care. Evaluation Laboratory results: Laboratory Tests 10/25/21 11:49 Sodium 132 L Potassium 4.0 Chloride 106 Carbon Dioxide 18 L Anion Gap 8 BUN 6 L Creatinine 0.40 L Estim Creat Clear Calc 198 Estimated GFR > 60 Glucose 73 Calcium 8.7 Total Bilirubin 0.5 AST 30 ALT 18 Alkaline Phosphatase 104 Total Protein 7.0 Albumin 3.8
== END 2021-10-25 13:25 | disposition home or self-care (01) ==
PROVIDERS: Admitting Provider Obstetrics & Gynecology; Visit Provider Obstetrics & Gynecology Gynecology
DX: O21.2 Late vomiting of pregnancy (principal); Z3A.32 32 weeks gestation of pregnancy
CPT/HCPCS: 36415; 80053; 96360; 96361; G0378; G0379; J7120

== ENCOUNTER 2021-11-13 14:07 | Outpatient (CLI) | payer OTHER, SELFPAY ==
[2021-11-13 17:11] VITALS: BP 115/69; PULSE 96
== END 2021-11-13 15:00 | disposition home or self-care (01) ==
LOC: ANHOBOP 14:59 → ANHLDR 15:00
PROVIDERS: Visit Provider Obstetrics & Gynecology Gynecology
DX: O41.8X90 Other specified disorders of amniotic fluid and membranes, unspecified trimester, not applicable or unspecified (principal); Z3A.00 Weeks of gestation of pregnancy not specified
CPT/HCPCS: 59025; 84112; 99199

== ENCOUNTER 2021-11-24 16:45 | Outpatient (RCR) | payer OTHER, SELFPAY ==
--- NOTE | ~2021-11-24 | US_ITS ---
EXAMINATION: US OB BPP wo non-stress DATE: 11/24/2021 18:19 INDICATION: Nonreactive nonstress test during third trimester TECHNIQUE: Real-time pelvic ultrasound was performed. The interpreting radiologist was not present fo r the study. COMPARISON: None. FINDINGS: There is a single living fetus in vertex presentation. The placenta is fundal. heart rate is 15 7 beats per minute (bpm). The amniotic fluid index is 5.6 cm which is low (normal range: 7.5 cm to 24 .4 cm) Biophysical profile performed by the technologist: breathing (30 sec sustained breathing in 30 minutes): 0 out of 2; breathing was visualize d but did not meet criteria movement (3 gross body movements in 30 minutes): 2 out of 2 tone (one episode of auorcjn-iixjzsguq-hqqjhpo limb movement): 2 out of 2 Amniotic fluid pocket (2 cm): 2 out of 2 Total score: 6 out of 8 IMPRESSION: 1. Single living fetus in vertex presentation. 2. Biophysical profile 6 out of 8. 3. Oligohydramnios. Reviewed, dictated and finalized at location F. [facility]
[2021-11-24 18:18] LABS: Basophils Percent Auto 0.3 % (0.2-1.2); Eosinophils Absolute Auto 0.1 K/mm3 (0-0.3); Eosinophils Percent Auto 0.5 % (0-4.4); Hemoglobin 10.3 g/dL (12.0-15.0); Immature Granulocyte Absolute 0.28 K/mm3 (0.00-0.031); Immature Granulocyte Percent A 2.5 % (0-0.5); Lymphocytes Absolute Auto 2.21 K/mm3 (0.9-3.2); Lymphocytes Percent Auto 19.5 % (18.3-44.2); Mean Corpuscular HGB Conc 33.2 g/dl (32-36); Mean Corpuscular Hemoglobin 30.8 pg (26-34); Mean Corpuscular Volume 92.8 fl (80-100); Mean Platelet Volume 11.8 fl (7.4-10.4); Monocytes Absolute Auto 0.7 K/mm3 (0.1-0.6); Monocytes Percent Auto 6.2 % (2.6-8.5); Neutrophils Absolute Auto 8.1 K/mm3 (1.3-6.7); Platelet Count Result 183 k/mm3 (150-375); Red Blood Count 3.34 M/mm3 (4.2-5.4); Red Cell Distribution Width 13.3 % (11.5-14.5); White Blood Count 11.4 K/mm3 (4.5-10.0)
[2021-11-24 18:27] LABS: Alanine Aminotransferase 16 U/L (4-35); Albumin Level 3.5 g/dL (3.5-5.1); Alkaline Phosphatase 113 U/L (38-126); Anion Gap 7 mmol/L (8-16); Aspartate Amino Transferase 27 U/L (14-36); Bilirubin,Total 0.4 mg/dL (0.2-1.3); Blood Urea Nitrogen 9 mg/dL (7-17); Calcium 9.8 mg/dL (8.4-10.2); Carbon Dioxide 23 mmol/L (22-30); Chloride 105 mmol/L (98-107); Estimated Glomerular Filt Rate > 60; Glucose 84 mg/dL (65-110); Potassium 3.3 mmol/L (3.4-5.0); Sodium 135 mmol/L (137-145); Uric Acid 4.2 mg/dL (2.5-7.5)
[2021-11-24 18:35] VITALS: BP 129/74; PULSE 84
[2021-11-24 19:06] LABS: Add Urine Microscopic? YES; Amorphous Sediment Urine Moderate; Appearance Urine Cloudy (Clear); Bacteria Urine Trace /hpf; Bilirubin Urine Negative (Negative); Blood Urine Negative (Negative); Color Urine Yellow (Yellow); Glucose Urine UA Negative (Negative); Ketones Urine Trace mg/dL (Negative); Leukocyte Esterase Ur Negative LEU/UL (NEGATIVE); Mucus Urine Rare /lpf; Nitrate Urine Negative (Negative); Protein Urine Negative (Negative); RBC Urine 0-2 /hpf (0-2); Specific Grav Ur 1.013 (1.001-1.035); Squamous Epithelial Cell Urine Occasional /hpf (Few); Urobilinogen Urine Negative mg/dL (<2.0); WBC Urine 0-3 /hpf (0-3)
[2021-11-24 19:24] LABS: Creatinine Urine 87.8 mg/dL; Total Protein Urine Random 22 mg/dL; Ur Ttl Prot Creatinine Ratio 0.25 mg/mg (0-0.20)
[2021-11-24 19:59] VITALS: BP 125/79; PULSE 89; RESP 16; TEMP 36.7; O2SAT 100
== END 2021-12-25 08:36 | disposition home or self-care (01) ==
LOC: ANHOBOP 16:45
PROVIDERS: Referring Provider Obstetrics & Gynecology Gynecology; Visit Provider Obstetrics & Gynecology Gynecology
DX: O36.8130 Decreased fetal movements, third trimester, not applicable or unspecified (principal); O41.03X0 Oligohydramnios, third trimester, not applicable or unspecified; O26.893 Other specified pregnancy related conditions, third trimester; R03.0 Elevated blood-pressure reading, without diagnosis of hypertension; Z3A.37 37 weeks gestation of pregnancy
CPT/HCPCS: 36415; 59025; 76819; 80053; 81001; 82570; 84156; 84550; 85025; 87086

== ENCOUNTER 2021-11-27 14:28 | Inpatient (IN) | payer OTHER, SELFPAY ==
[2021-11-27] VITALS (57 sets, daily range): BP systolic 98–147; BP diastolic 47–97; PULSE 86–137; RESP 18; TEMP 36.8–37; O2SAT 96–100; BMI 30.4
--- NOTE | ~2021-11-27 | US_ITS ---
EXAMINATION: US OB limited w BPP DATE: 11/27/2021 13:58 INDICATION: Oligohydramnios. Assess amniotic fluid index and biophysical profile during third trimest er . TECHNIQUE: Real-time pelvic ultrasound was performed. The interpreting radiologist was not present fo r the study. COMPARISON: 11/24/2021 FINDINGS: There is a single living fetus in vertex presentation. The placenta is fundal. heart rate is 1 49 beats per minute (bpm). Persistent oligohydramnios with amniotic fluid index of 4.9 cm which is gr eater than 3 standard deviations below the mean (2.5th%-97.5%: 6.6-27.5 at 37 weeks estimated gestati onal age) Biophysical profile performed by the technologist: breathing (30 sec sustained breathing in 30 minutes): 2 out of 2 movement (3 gross body movements in 30 minutes): 2 out of 2 tone (one episode of uvwedsl-megwzmzys-tmxsrir limb movement): 2 out of 2 Amniotic fluid pocket (2 cm): 2 out of 2 Total score: 8 out of 8 IMPRESSION: 1. Single living fetus in vertex presentation with heart rate of 149 bpm. 2. Biophysical profile 8 out of 8. 3. Oligohydramnios with amniotic fluid index of 4.9 cm which is greater than 3 standard deviations be low the mean for estimated gestational age of 37 weeks. Reviewed, dictated and finalized at location A. R CONNECTOR IMPRESSION: 1. Single living fetus in vertex presentation with heart rate of 149 bpm. 2. Biophysical profile 8 out of 8. 3. Oligohydramnios with amniotic fluid index of 4.9 cm which is greater than 3 standard deviations below the mean for estimated gestational age of 37 weeks.
--- NOTE | 2021-11-27 14:28 | PC.NURSE ---
1428--Report to Dr. Adame re: BPP, UMA, VE, and NST. Orders to admit for IOL for oligohydramnios with cervidil.
[2021-11-27 15:07] LABS: Basophils Percent Auto 0.3 % (0.2-1.2); Eosinophils Absolute Auto 0.1 K/mm3 (0-0.3); Eosinophils Percent Auto 0.5 % (0-4.4); Hematocrit 34.7 % (37.0-47.0); Hemoglobin 11.3 g/dL (12.0-15.0); Immature Granulocyte Absolute 0.31 K/mm3 (0.00-0.031); Immature Granulocyte Percent A 2.8 % (0-0.5); Lymphocytes Absolute Auto 2.16 K/mm3 (0.9-3.2); Lymphocytes Percent Auto 19.2 % (18.3-44.2); Mean Corpuscular HGB Conc 32.6 g/dl (32-36); Mean Platelet Volume 11.2 fl (7.4-10.4); Monocytes Absolute Auto 0.8 K/mm3 (0.1-0.6); Neutrophils Absolute Auto 7.9 K/mm3 (1.3-6.7); Neutrophils Percent Auto 70.2 % (45.5-73.1); Platelet Count Result 196 k/mm3 (150-375); Red Blood Count 3.77 M/mm3 (4.2-5.4); Red Cell Distribution Width 13.5 % (11.5-14.5); White Blood Count 11.3 K/mm3 (4.5-10.0)
--- NOTE | 2021-11-27 15:12 | LDADM ---
This patient, Patricia Madden, was admitted to Labor/Delivery/Recovery 108 on 11/27/21 at 14:34. Plans for labor, pain management and were discussed with patient. Patient/family oriented to hospital policies and general routines including ID bracelet, bed and alarms, visiting hours, pain management, procedures, bathroom and other care routines, personal items, smoking policy, room service/diet and guest tray routines, infant security routines, and visiting hours. Patient/Family are encouraged to report perceived risks to care and to ask questions if they do not understand what they are told or what they should do. See OBIX for further documentation.
[2021-11-27] MEDS: DINOPROSTONE 10 MG VAG INSERT VAGINAL (15:49)
--- NOTE | 2021-11-27 17:41 | P.PNAN_ITS ---
Anes - Eval Pre Procedure Procedure: labor epidural Date/Time: 11/27/21 17:41 Surgeon: aaliyah Preop Diagnosis: pain during labor Pre Op Diagnosis: Leaking Patient Data Age: 26 Gender: F Height: 1.73 m Weight: 91 kg Last Vital Signs Temp 36.8 C 11/27/21 15:00 Pulse 105 H 11/27/21 17:30 BP 128/85 11/27/21 17:30 Allergies Allergy/AdvReac Type Severity Reaction Status Date / Time No Known Allergies Allergy Verified 11/28/19 21:45 Home Medications Medication Instructions Recorded Confirmed Type Gummies 2 tablet PO DAILY 12/25/19 11/27/21 History Laboratory Tests 11/27/21 11/27/21 11/27/21 14:55 14:55 14:55 WBC 11.3 K/mm3 H K/mm3 (4.5-10.0) RBC 3.77 M/mm3 L M/mm3 (4.2-5.4) Hgb 11.3 g/dL L g/dL (12.0-15.0) Hct 34.7 % L % (37.0-47.0) MCV 92.0 fl fl (80-100) MCH 30.0 pg pg (26-34) MCHC 32.6 g/dl g/dl (32-36) RDW 13.5 % % (11.5-14.5) Plt Count 196 k/mm3 k/mm3 (150-375) MPV 11.2 fl H fl (7.4-10.4) Immature Gran % (Auto) 2.8 % H % (0-0.5) Neut % (Auto) 70.2 % % (45.5-73.1) Lymph % (Auto) 19.2 % % (18.3-44.2) [place] % (Auto) 7.0 % % (2.6-8.5) Eos % (Auto) 0.5 % % (0-4.4) Baso % (Auto) 0.3 % % (0.2-1.2) Lymph # (Auto) 2.16 K/mm3 K/mm3 (0.9-3.2) [place] # (Auto) 0.8 K/mm3 H K/mm3 (0.1-0.6) Eos # (Auto) 0.1 K/mm3 K/mm3 (0-0.3) Baso # (Auto) 0.0 K/mm3 K/mm3 (0.0-0.1) Abs Immat Gran (auto) 0.31 K/mm3 H K/mm3 (0.00-0.031) Absolute Neuts (auto) 7.9 K/mm3 H K/mm3 (1.3-6.7) Absolute Nucleated RBC 0.0 K/mm3 K/mm3 (0.0-0.012) Nucleated RBC % 0.0 % % (0.0-0.2) RPR Pending Blood Type O Positive Antibody Screen Negative Patient hx anesthesia problems: none Family hx anesthesia problems: none Results Review: All pre-operative results and documents have been reviewed as part of the pre-operative evaluation. [facility] Past Medical History Medical History Anxiety Surgical History Surgical History (Updated 11/28/19 @ 21:47 by Laura Valle) History of appendectomy Family History Family History Mother Hypertension Rheumatoid arthritis Social History Social History Smoking status: Never smoker Second hand tobacco smoke exposure: No Substance use: never Gender identity (if verbalized by the patient): Female Spiritual care concerns: No Exam Day of Procedure 11/27/21 17:41
[2021-11-27] MEDS: fentaNYL CITRATE INJ (*CRX) 100 MCG/2 ML VIAL 50 MCG IV PUSH (18:35)
[2021-11-27] MEDS: LACTATED RINGERS 1,000 ML 125 ML IV CONT (19:00)
[2021-11-27] MEDS: OXYTOCIN 30 UNITS/NS 500 ML 30 UNITS/500 ML BAG 125 UNITS IV CONT (21:03)
--- NOTE | 2021-11-27 21:08 | WPDOBADMIT ---
Obstetrics - Admit Note Admission Note: record reviewed. No pertinent additions to the history and/or any subsequent changes in the physical findings that are not consistent with the expected course of the were found. Additions to the history and/or subsequent changes in the physical findings follow. Here for UMA and BBP/NST today. UMA decreased to 4.2 so recommended induction. Cervadil placed initially and patient into active labor. FHTs reactive. call or contact centre operator to me patient was 6 cm and on my arrival she was 9 cm. AROM with clear fluid. Progressed over next contraction to complete.
--- NOTE | 2021-11-27 21:09 | PM.OBPRVD ---
OB - Delivery Note Procedure Delivery date: 11/27/21 events: Labor Induction and Oligohydramnios Intrapartal events: None and Precipitous Labor < 3 hours Induction method: per cervidil protocol Delivery monitor: external FHT and external uterine Route of delivery: Laceration Description: None Specimen: Yes (marginal insertion of small placenta) Quantitative Blood Loss (ml): 50 Anesthesia type: Epidural Disposition: floor Baby Date of : 11/29/21 Weeks of gestation at delivery: 37 gender: Female Weight (pounds): 5 Weight (ounces): 11 presentation: vertex position: Right Occiput Anterior Placenta delivery description: Spontaneous cord vessel description: 3 Vessels score one minute: 9 score five minutes: 9
--- NOTE | 2021-11-27 21:11 | P.DS_ITS ---
DS: Admitting Diagnosis Discharge Date 11/29/21 Admitting Diagnosis IUP 37 4/7 wks with oligohydramnios DS: Discharge Diagnosis Discharge Diagnosis (1) (normal spontaneous vaginal delivery): Code(s): O80 - Encounter for full-term uncomplicated delivery Status: Acute OB - DS: Summary OB Procedures : NST and Ultrasound OB Procedures Intrapartum: Spontaneous Vag Delivery OB Procedures: : None Peripartum Data Infant Delivery Method: Natural Vaginal Laceration Description: None complications: none Status at Discharge Functional status at discharge: independent ambulation Overall status at discharge: patient is progressing back to baseline Time Spent with Patient Time attestation: Total time spent providing and/or coordinating discharge services: DS: Data Data Completed and Pending Labs on day of discharge: Labs from last 24 hours 11/27/21 11/27/21 11/27/21 14:55 14:55 14:55 WBC 11.3 H RBC 3.77 L Hgb 11.3 L Hct 34.7 L MCV 92.0 MCH 30.0 MCHC 32.6 RDW 13.5 Plt Count 196 MPV 11.2 H Immature Gran % (Auto) 2.8 H Neut % (Auto) 70.2 Lymph % (Auto) 19.2 [place] % (Auto) 7.0 Eos % (Auto) 0.5 Baso % (Auto) 0.3 Lymph # (Auto) 2.16 [place] # (Auto) 0.8 H Eos # (Auto) 0.1 Baso # (Auto) 0.0 Abs Immat Gran (auto) 0.31 H Absolute Neuts (auto) 7.9 H Absolute Nucleated RBC 0.0 Nucleated RBC % 0.0 RPR Pending Blood Type O Positive Antibody Screen Negative Discharge Plan Discharge Attending physician on discharge: Lachelle Adame Discharging Clinician: Lachelle Adame Anticipated Discharge Date/Time: 11/29/21 21:12 Patient Disposition: Home, Self-Care Activity: may shower and pelvic rest Diet: regular Patient Instructions: Antibiotic Form Stand Alone Forms: General Discharge Information Follow-up/Referrals: Lachelle Adame MD [Physician] - 6 Weeks Discharge Medications: Continued Gummies 400 mcg-35 mg- 25 mg-5 mg Tablet,Chewable 2 tablet PO DAILY RF: 0 Date of admission: 11/27/21 14:28 Primary Care Provider: PHYSICIAN,NAILER MACHINE Admitting Provider: Lachelle Adame Attending physician on admission: Lachelle Adame Condition: Stable Health Concerns: Received DepoProvera 11/28/21
--- NOTE | 2021-11-27 23:33 | OBPPTRN ---
Patient transferred to post room #286 via W/C. Support person present. Oriented to unit, room, information board, rooming in, admission packet and security measures. Patient verbalizes understanding.
[2021-11-28] MEDS: IBUPROFEN 600 MG TABLET PO ×3 (00:14→19:48)
[2021-11-28 04:58] VITALS: BP 118/67; PULSE 82; RESP 16; TEMP 37.2
[2021-11-28 05:27] LABS: Hematocrit 28.3 % (37.0-47.0); Hemoglobin 9.2 g/dL (12.0-15.0)
[2021-11-28 07:28] LABS: Rapid Plasma Reagin Non-Reactive (NonReactive)
--- NOTE | 2021-11-28 07:45 | PM.OBPNVD ---
OB - PN: Subj Subjective Date/time seen: 11/28/21 07:45 Patient comments: no complaints and pain well controlled baby status: doing well OB - PN: Obj Data Labs CBC & Chem 7: 11/28/21 05:20 Labs: Laboratory Results - last 24 hr 11/27/21 11/27/21 11/27/21 14:55 14:55 14:55 WBC 11.3 H RBC 3.77 L Hgb 11.3 L Hct 34.7 L MCV 92.0 MCH 30.0 MCHC 32.6 RDW 13.5 Plt Count 196 MPV 11.2 H Immature Gran % (Auto) 2.8 H Neut % (Auto) 70.2 Lymph % (Auto) 19.2 [place] % (Auto) 7.0 Eos % (Auto) 0.5 Baso % (Auto) 0.3 Lymph # (Auto) 2.16 [place] # (Auto) 0.8 H Eos # (Auto) 0.1 Baso # (Auto) 0.0 Abs Immat Gran (auto) 0.31 H Absolute Neuts (auto) 7.9 H Absolute Nucleated RBC 0.0 Nucleated RBC % 0.0 RPR Non-reactive Blood Type O Positive Antibody Screen Negative 11/28/21 05:20 WBC RBC Hgb 9.2 L Hct 28.3 L MCV MCH MCHC RDW Plt Count MPV Immature Gran % (Auto) Neut % (Auto) Lymph % (Auto) [place] % (Auto) Eos % (Auto) Baso % (Auto) Lymph # (Auto) [place] # (Auto) Eos # (Auto) Baso # (Auto) Abs Immat Gran (auto) Absolute Neuts (auto) Absolute Nucleated RBC Nucleated RBC % RPR Blood Type Antibody Screen Imaging Radiologist's impression: Impressions Obstetrics US/Biophysical Profile 11/27/21 14:01 IMPRESSION: 1. Single living fetus in vertex presentation with heart rate of 149 bpm. 2. Biophysical profile 8 out of 8. 3. Oligohydramnios with amniotic fluid index of 4.9 cm which is greater than 3 standard deviations below the mean for estimated gestational age of 37 weeks. OB - PN A/P Plan day: 1 Plan: routine care and other (plans DepoProvera) Time Spent With Patient Time: Total time spent is greater than 50% in coordination of care (as documented) at patient's floor/unit and/or counseling patient: Exam : Bimanual exam- vagina & uterus: other (Uterus firm, nt @U)
[2021-11-28 08:25] VITALS: BP 119/68; PULSE 79; RESP 18; TEMP 36.3; O2SAT 99
[2021-11-28] MEDS: POLYSACCHARIDE IRON COMPLEX 150 MG CAPSULE PO ×2 (08:34→19:48)
[2021-11-28] MEDS: DOCUSATE SODIUM 100 MG CAPSULE PO ×2 (08:34→19:48)
[2021-11-28 11:42] VITALS: BP 117/71; PULSE 83; RESP 18; TEMP 36.3; O2SAT 97
--- NOTE | 2021-11-28 18:30 | WPDANLDPN2 ---
Anes-Prog Note L&D Date/Time: 11/28/21 18:30 Comfortable throughout: labor and delivery Neuraxial method: epidural Epidural/Spinal procedure site: clean & non-tender Neuro status: Neuro function grossly intact. Cardiovascular status: normal Respiratory status: normal Airway patency: baseline Mental status: baseline Post-Op hydration status: normal Vital Signs: Last Vital Signs Temp 36.3 C L 11/28/21 11:42 Pulse 83 11/28/21 11:42 Resp 18 11/28/21 11:42 BP 117/71 11/28/21 11:42 Pulse Ox 97 11/28/21 11:42 Pain score (VAS): 0 Post-procedural complaints: none Patient feedback: Patient satisfied with anesthetic care.
[2021-11-28 19:50] VITALS: BP 129/86; PULSE 79; RESP 16; TEMP 36.7
[2021-11-29] MEDS: medroxyPROGESTERone ACETATE IM 150 MG/ML SYR IM (04:22)
--- NOTE | 2021-11-29 07:22 | PM.OBPNVD ---
OB - PN: Subj Subjective Date/time seen: 11/29/21 07:22 Patient comments: no complaints and pain well controlled baby status: doing well OB - PN: Obj Data Labs CBC & Chem 7: 11/28/21 05:20 Labs: Laboratory Results - last 24 hr 11/27/21 14:55 RPR Non-reactive OB - PN A/P Plan day: 2 Plan: routine care, discharge home and follow up 6 weeks Time Spent With Patient Time: Total time spent is greater than 50% in coordination of care (as documented) at patient's floor/unit and/or counseling patient: Exam : Bimanual exam- vagina & uterus: other (Uterus firm, nt @U)
--- NOTE | 2021-11-29 08:00 | PC.NURSE ---
PT introductions made and plan of care discussed per post , pain management, bottle feeding, daily care activities and pending discharge to home. PT received such instructions per protocol using one to one discussion, mom baby care guide book, demonstration for this shift. PT sole recipient of such instructions and no barriers to learning identified. PT verbalized understanding of such care.
[2021-11-29 08:20] VITALS: BP 121/81; PULSE 72; RESP 18; TEMP 36.6; O2SAT 99
[2021-11-29 09:00] VITALS: PULSE 72; RESP 18; O2SAT 99
[2021-11-29] MEDS: DOCUSATE SODIUM 100 MG CAPSULE PO (09:03)
[2021-11-29] MEDS: IBUPROFEN 600 MG TABLET PO (09:03)
--- NOTE | 2021-11-29 10:30 | PC.NURSE ---
PT received discharge instructions per protocol and verbalized understanding of such instructions.
--- NOTE | 2021-11-29 11:15 | PC.NURSE ---
PT discharged to home ambulatory accompanied by significant other and and taken to waiting car. follow up appts confirmed
[2021-11-30 09:38] VITALS: BP 120/83; PULSE 87; RESP 20; TEMP 37; O2SAT 100
== END 2021-11-29 11:15 | disposition home or self-care (01) | DRG 560 ==
LOC: ANHOBOP 15:47 → ANHLDR 15:47 → ANHOB2 11-28 00:38
PROVIDERS: Admitting Provider Obstetrics & Gynecology Gynecology; Visit Provider Obstetrics & Gynecology Gynecology
DX: O41.03X0 Oligohydramnios, third trimester, not applicable or unspecified (principal); O62.3 Precipitate labor; Z3A.37 37 weeks gestation of pregnancy; Z37.0 Single live birth; O43.123 Velamentous insertion of umbilical cord, third trimester
CPT/HCPCS: 36415; 76815; 76819; 84112; 85014; 85018; 85025; 86592; 86850; 86900; 86901; 88307; 99199; A9270; J1050; J2590; J2795; J3010; J7120

== ENCOUNTER 2022-08-14 09:54 | Emergency (ER) | payer OTHER, SELFPAY ==
--- NOTE | 2022-08-14 09:58 | ED.LOWEXIN ---
HPI - Extremity Injury (Lower) General Stated Complaint: SORE THROAT/COUGH/L FOOT INJURY Time Seen by Provider: 08/14/22 09:58 Source: patient and RN notes reviewed Related Data Home Medications Medication Instructions Recorded Confirmed PNV 153-FA 400 mcg-om3 35 mg-dha 2 tablet PO DAILY 12/25/19 11/27/21 25 mg-epa 5 mg-fish oil chew tablet ( Gummies) Allergies Allergy/AdvReac Type Severity Reaction Status Date / Time No Known Allergies Allergy Verified 11/28/19 21:45 Review of Systems Review of Systems: CONSTITUTIONAL: Denies fever, chills, or sweats. EYES: Denies visual changes, redness, or discharge. ENT: Denies rhinorrhea, congestion, sore throat, or otalgia. CARDIOVASCULAR: Denies chest pain, palpitations, or edema. RESPIRATORY: Denies cough or dyspnea. GASTROINTESTINAL: Denies abdominal pain, nausea, vomiting, or diarrhea. GENITOURINARY: Denies dysuria or hematuria. SKIN: Denies rash or itching. MUSCULOSKELETAL: Denies back pain, joint pain, or myalgia. NEUROLOGIC: Denies headache, numbness, or weakness. PSYCHIATRIC: Denies anxiety or depression. All other systems reviewed are negative, except as documented in HPI. PMFSH Past Medical History Medical History Anxiety Surgical History Surgical History (Updated 11/28/19 @ 21:47 by Laura Valle) History of appendectomy Family History Family History Mother Hypertension Rheumatoid arthritis Social History Social History Smoking status: Never smoker Second hand tobacco smoke exposure: No Substance use: never Gender identity (if verbalized by the patient): Female Spiritual care concerns: No Comments At the time of my signature, I reviewed and agree with the nursing past medical, surgical, social, and family history. There is no relevant family history pertinent to the patient complaint. Exam Narrative: GENERAL: This is a well-nourished, well-developed patient, in no apparent distress. HEAD: normocephalic, atraumatic. EYES: PERRL. Sclera clear/white. Vision is grossly intact. EARS: External ears normal, auditory canals clear and without drainage, TMs normal without perforation. Hearing grossly intact. NOSE: External nose normal with no obvious nasal discharge, nares without redness, no rhinorrhea. THROAT: Mucous membranes moist, posterior pharynx clear. NECK: Neck supple, non-tender without lymphadenopathy, masses or thyromegaly. CARDIOVASCULAR: Regular rate and rhythm without murmurs, gallops, or rubs. RESPIRATORY: Clear to auscultation. Breath sounds equal bilaterally. No wheezes, rales, or rhonchi. GASTROINTESTINAL: Abdomen soft, non-tender, nondistended. Bowel sounds are active. No hepato-splenomegaly, or palpable masses. No guarding. SKIN: warm, intact with no suspicious lesions or rash, good texture and turgor. NEURO: awake, alert, and oriented to person, place and time. There were no obvious focal neurologic abnormalities. EXTREMITIES: No clubbing, cyanosis, or edema. No joint tenderness, effusion, or edema noted. No calf tenderness. Negative Homans sign bilaterally. BACK: Nontender without deformity or crepitance. No flank tenderness. Course Course Level of Care: Express Care Visit MDM - Extremity Injury (Lower) Differential Diagnosis Differential diagnosis: Likely ankle sprain and strain, acute internal derangement of knee, fracture of femur, fracture of hip and ankle fracture Critical Care Time Critical Care Time Critical Care Time: No Discharge Plan Discharge Prescriptions: No Action Gummies 400 mcg-35 mg- 25 mg-5 mg Tablet,Chewable 2 tablet PO DAILY Follow-up/Referrals: Mireya,Jeanie Rosenthal APRN [Primary Care Provider] -
[2022-08-14 10:01] VITALS: BP 122/90; PULSE 88; RESP 16; TEMP 37; O2SAT 100
--- NOTE | 2022-08-14 10:09 | ED.URI ---
HPI - URI/Sore Throat General Chief Complaint: Upper Respiratory Infection Stated Complaint: SORE THROAT/COUGH/L FOOT INJURY Time Seen by Provider: 08/14/22 09:58 Source: patient and RN notes reviewed History of Present Illness HPI Narrative: Patient is a 26-year-old female who presents the urgent care with complaints of a sore throat and cough. Patient states that started last Saturday, seem to get better, and then worsened over the last couple days. Patient states that last week she went to [place] urgent [facility] and tested negative for both flu and strep. Patient states her work is requesting she have a repeat strep test. Denies of any known fevers. States that she has been taking Zyrtec/Tylenol/ibuprofen. No other acute complaints. No acute distress noted. Patient aware of the plan of care. Some parts of this dictation were generated by voice recognition software and may contain typographical and/or grammatical inaccuracies. Related Data Home Medications Medication Instructions Recorded Confirmed PNV 153-FA 400 mcg-om3 35 mg-dha 2 tablet PO DAILY 12/25/19 11/27/21 25 mg-epa 5 mg-fish oil chew tablet ( Gummies) bupropion HCl 150 mg 24 hr tablet, mg PO 08/14/22 extended release sertraline 100 mg tablet mg 08/14/22 Allergies Allergy/AdvReac Type Severity Reaction Status Date / Time No Known Allergies Allergy Verified 11/28/19 21:45 Review of Systems Review of Systems: CONSTITUTIONAL: Denies fever, chills, or sweats. EYES: Denies visual changes, redness, or discharge. ENT: Denies rhinorrhea, congestion, otalgia. Reports of sore throat CARDIOVASCULAR: Denies chest pain, palpitations, or edema. RESPIRATORY: Reports a mild cough without dyspnea GASTROINTESTINAL: Denies abdominal pain, nausea, vomiting, or diarrhea. GENITOURINARY: Denies dysuria or hematuria. SKIN: Denies rash or itching. MUSCULOSKELETAL: Denies back pain, joint pain, or myalgia. NEUROLOGIC: Denies headache, numbness, or weakness. All other systems reviewed are negative, except as documented in HPI. [facility] Past Medical History Medical History Anxiety Surgical History Surgical History (Updated 01/18/20 @ 21:47 by Laura Valle) History of appendectomy Family History Family History Mother Hypertension Rheumatoid arthritis Social History Social History Smoking status: Never smoker Second hand tobacco smoke exposure: No Substance use: never Gender identity (if verbalized by the patient): Female Spiritual care concerns: No Comments At the time of my signature, I reviewed and agree with the nursing past medical, surgical, social, and family history. There is no relevant family history pertinent to the patient complaint. Exam Narrative: GENERAL: This is a well-nourished, well-developed patient, in no apparent distress. HEAD: normocephalic, atraumatic. EYES: PERRL. Sclera clear/white. Vision is grossly intact. EARS: External ears normal, auditory canals clear and without drainage, TMs normal without perforation. Hearing grossly intact. NOSE: External nose normal with no obvious nasal discharge. Mild bilateral erythemic nares with clear rhinorrhea THROAT: Mucous membranes moist, posterior pharynx clear. Mild postnasal drainage NECK: Neck supple, non-tender without lymphadenopathy CARDIOVASCULAR: Regular rate and rhythm without murmurs, gallops, or rubs. RESPIRATORY: Clear to auscultation. Breath sounds equal bilaterally. No wheezes, rales, or rhonchi. SKIN: warm, intact with no suspicious lesions or rash, good texture and turgor. NEURO: awake, alert, and oriented to person, place and time. There were no obvious focal neurologic abnormalities. Course Course Level of Care: Express Care Visit Vital Signs Vital signs: Vital Signs Temperature 98.6 F
== END 2022-08-14 10:21 | disposition home or self-care (01) ==
PROVIDERS: Emergency Provider Nurse Practitioner Family; PCP Nurse Practitioner Family
DX: J02.9 Acute pharyngitis, unspecified (principal); F41.9 Anxiety disorder, unspecified
CPT/HCPCS: 87081; 87880; 99213; G0463

== ENCOUNTER 2025-09-21 14:09 | Outpatient (CLI) | payer OTHER, SELFPAY ==
--- NOTE | ~2025-09-21 | XR_ITS ---
EXAMINATION: XR hip LT min 2V, 09/21/2025 14:28 CONSERVATION BIOLOGY PROFESSOR HISTORY: LT HIP PAIN COMPARISON: No comparisons available. Findings: No acute fracture or malalignment. No significant degenerative changes. Soft tissues unremarkable. Impression: No acute fracture or malalignment. Reviewed, dictated and finalized at location P. ERVATION BIOLOGY PROFESSOR Impression: No acute fracture or malalignment.
--- OUTSIDE RECORDS SUMMARY | 2025-09-21 14:14 | XMS_ITS | Clinical Summary ---
Author Organization [facility] Address [address] [place] [address] Care Team Providers Care Gear Shaver Set Up Operator Name Role Phone Unavailable Primary Care Provider Unavailabl e Source Comments [facility],non-owned Affiliates and Associated Physician Practices is amultiple site organization consisting of ambulatory clinics and hospital sitesin [place], [place], [place] and [place]. This disclosure is being madepursuant to the Care Everywhere program and may not contain all information available regarding this patient. Last updated 18.[facility] Allergies No known active allergies Medications * Be aware that medications may not be up to date on this document. Alwaysverify current medications with the patient. amitriptyline (ELAVIL) 150 MG tablet Take 150 mg by mouth at bedtime Active albuterol HFA (VENTOLIN HFA) 108 (90 BASE) MCG/ACT inhalerIndicatio ns:Acute bronchitis, unspecified organism Inhale 2 puffs by mouth every 6 hours as needed for Wheezing or Cough 1 Inhaler 8 Active acetaminophen-co deine (TYLENOL #3) 300-30 MG tablet Take 1 tablet by mouth every 6 hours as needed for Pain 42 tablet 9 Active Active Problems Patient Care Coordination No te Formatting of this note migh t be different from the original. Pt is WC Left elbow CLM# [id number] Adj-Yolande Damian PH [phone] [email or web address] Problem Noted Date Diagnosed Date Closed nondisplaced fracture of head of right ra dius 01/06/2019 Closed nondisplaced fracture of head of left rad ius 01/06/2019 Mass of left side of neck 09/25/2017 Appendicitis 04/10/2017 Family History Medical History Relation Name Comments Hypertension Mother Relation Name Status Comments Brother Alive Father Alive Maternal Grandfather Maternal Grandmother Mother Alive Paternal Grandfather Alive Paternal Grandmother Sister Alive Social History Tobacco Use Types Packs/Day Years Used Date Smoking Tobacco: Never Smokeless Tobacco: Never Alcohol Use Standard Drinks/Week Comments Yes 0 (1 standard drink = 0.6 oz pur e alcohol) occ Comments No Sex and Gender Information Value Date Recorded Sex Assigned at Not on file Legal Sex Female 5:35 AM [employer] Gender Identity Not on file Sexual Orientation Not on file Last Filed Vital Signs Vital Sign Reading Time Taken Comments Blood Pressure 114/78 10/10/2018 2:04 PM [employer] Pulse 111 10/10/2018 2:04 PM [employer] Temperature 37.9 C (100.2 F) 10/10/2018 2:04 PM [employer] Respiratory Rate 17 10/10/2018 2:04 PM [employer] Oxygen Saturation 99% 10/10/2018 2:04 PM [employer] Inhaled Oxygen Concentration - - Weight 72.6 kg (160 lb) 10/10/2018 2:04 PM [employer] Height 175.3 cm (5' 9) 10/10/2018 2:04 PM [employer] Body Mass Index 23.63 10/10/2018 2:04 PM [employer] Plan of Treatment Health Maintenance Due Date Last Done Comments HIV SCREENING 2008 HEPATITIS C SCREENING 09/24/2011 DTAP/TDAP/TD VACCINES (1 - Tdap) 2012 HEPATITIS B VACCINE (1 of 3 - 19+ 3-dose series) 2012 HPV VACCINE (1 - 3-dose SCDM series) 2020 DEPRESSION SCREENING 11/11/2024 COVID-19 VACCINE (1 - 2023-2 5 season) 2025 INFLUENZA VACCINE (#1) 2025 ZOSTER VACCINE (1 of 2) 2043 HIB VACCINE Aged Out No longer eligi ble based on patient's age to complete this topic MENINGOCOCCAL (Group B) VACC INE SHARED DECISION-MAKING Aged Out No longer eligibl e based on patient's age to complete this topic MENINGOCOCCAL GROUPS A/C/Y/W VACCINE Aged Out No longer eligible b ased on patient's age to complete this topic PNEUMOCOCCAL VACCINE Aged Out No long er eligible based on patient's age to complete this topic Insurance [facility] PAYOR GENERIC Advance Directives * Full Code (Latest Code Status on File) Date Activated Date Inactivated Comments 04/10/2017 3:29 PM 04/11/2017 10:27 AM
--- OUTSIDE RECORDS SUMMARY | 2025-09-21 14:14 | XMS_ITS | Encounter Summary ---
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 Name Role Phone Unavailable Primary Care Provider Unavailabl e Encounter Details Date Type Department Care Team (Late st Contact Info) Description 04/10/2017 [facility] Outpatient Visit [facility] [address] [place] [address] [place] [address] [place] [address] Social History Tobacco Use Types Packs/Day Years Used Date Smoking Tobacco: Never Smokeless Tobacco: Never Alcohol Use Standard Drinks/Week Comments Yes 0 (1 standard drink = 0.6 oz pur e alcohol) occ Comments Unknown Sex and Gender Information Value Date Recorded Sex Assigned at Not on file 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 No 04/11/2017 9:16 AM Alyce Conroy RN Is person blind or have seri ous difficulty seeing? No 04/11/2017 9:16 AM Alyce Conroy RN Does person have serious dif ficulty walking/climbing stairs? No 04/11/2017 9:16 AM Floyd Conroy RN Does person have difficulty dressing/bathing? No 04/11/2017 9:16 AM Alyce Conroy RN Does person have difficulty doing errands alone? No 04/11/2017 9:16 AM Alyce Conroy RN Does person have difficulty concentrating/remembering/making decisions? No 04/11/2017 9:16 AM Alyce Conroy RN * Is person deaf or have serious hearing difficulty? Answer Date of Assessment Author No 04/10/2017 10:40 AM Mechelle Mora RN * Is person blind or have serious difficulty seeing? Answer Date of Assessment Author No 04/10/2017 10:40 AM Mechelle Mora RN * Does person have serious difficulty walking/climbing stairs? Answer Date of Assessment Author No 04/10/2017 10:40 AM Mechelle Mora RN * Does person have difficulty dressing/bathing? Answer Date of Assessment Author No 04/10/2017 10:40 AM Mechelle Mora RN * Does person have difficulty doing errands alone? Answer Date of Assessment Author No 04/10/2017 10:40 AM Mechelle Mora RN documented as of this encounter Mental Status * Does person have difficulty concentrating/remembering/making decisions? Answer Entry Date Author No 04/10/2017 10:40 AM Mechelle Mora RN documented in this encounter Plan of Treatment Not on file documented as of this encounter Visit Diagnoses Not on filedocumented in this encounter
--- OUTSIDE RECORDS SUMMARY | 2025-09-21 14:14 | XMS_ITS | Clinical Summary ---
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
== END 2025-09-21 14:10 | disposition home or self-care (01) ==
PROVIDERS: PCP Nurse Practitioner Family; Visit Provider Nurse Practitioner Family
DX: M25.552 Pain in left hip (principal)
CPT/HCPCS: 73502